=== PATIENT | female | born 2000 | race Hispanic/Latino ===

== ENCOUNTER → 2022-05-21 13:54 | Outpatient (ROUT) | payer OTHER, SELFPAY ==
[2022-05-21 16:47] LABS: COVID-19 CEPHEID PCR (VTM/NP) Negative (Negative)
== END ==
PROVIDERS: PCP Student in an Organized Health Care Education/Training Program; Visit Provider Otolaryngology
DX: J35.01 Chronic tonsillitis (principal); J35.1 Hypertrophy of tonsils; J98.8 Other specified respiratory disorders; J35.8 Other chronic diseases of tonsils and adenoids
CPT/HCPCS: U0003; U0005

== ENCOUNTER 2022-05-23 08:09 | Day surgery (SDC) | payer OTHER, SELFPAY ==
[2022-05-20 14:14] VITALS: BMI 22.3
[2022-05-23] VITALS (7 sets, daily range): BP systolic 118–148; BP diastolic 76–100; PULSE 65–102; RESP 11–23; TEMP 36.2–36.6; O2SAT 96–100; BMI 22.3
--- NOTE | 2022-05-23 08:53 | PM.PREOP ---
Pre-operative Note Interval Note History & Physical reviewed/Exam performed by Physician: Yes Changes to H&P: No
--- NOTE | 2022-05-23 08:54 | P.HP_ITS ---
History of Present Illness History of Present Illness Date Patient Seen: 05/23/22 Time Patient Seen: 08:54 Chief complaint: TONSILLECTOMY & POSS ADENOIDECTOMY Narrative: 21-year-old female last seen in clinic 02/28/2022 for chronic tonsillitis, tonsillar hypertrophy, respiratory obstruction and tonsil stones presents for tonsillectomy and possible adenoidectomy as outpatient. No interval health changes. Patient History Medical History COVID-19 virus infection (~01/2022) Recurrent tonsillitis Tonsil stone Tonsillar hypertrophy Surgical History No pertinent past surgical history Family & Social History Social History: household members other Tobacco & Substance use: Smoking Status Never smoker alcohol intake current alcohol intake frequency a few times a week Substance Use Type does not use Meds Home Medications and Allergies Home Medications Medication Instructions Recorded Confirmed Type No Known Home Medications 05/20/22 05/20/22 History Allergies Allergy/AdvReac Type Severity Reaction Status Date / Time No Known Drug Allergies Allergy Verified 05/23/22 08:30 Review of Systems Review of Systems Narrative: Negative except as listed in the HPI Exam Vital Signs (past 8 hours): - 05/23/22 08:31 Temperature 98 F Pulse Rate 70 Respiratory Rate 16 Blood Pressure 118/76 Pulse Oximetry 100 Oxygen Delivery Method Room Air Oxygen Delivery Method Room Air Narrative Exam Narrative: Well-developed well-nourished female in no acute distress. Heart regular rate and rhythm without murmur, lungs clear to auscultation bilaterally Assessment & Plan Assessment & Plan narrative: Assessment: Chronic tonsillitis, tonsillar hypertrophy, respiratory obstruction, tonsil stones Plan: Following discussion of the material risks benefits complications and alternatives, she elected to proceed with tonsillectomy and possible a denoidectomy as outpatient. Time Spent With Patient Critical Care time: I spent a total of [] minutes of critical care time on this patient's care today; this time is exclusive of procedural time.
--- NOTE | 2022-05-23 08:55 | PM.OP.1 ---
Operative Date/Time/Diagnoses Date of procedure: 05/23/22 Time of procedure: 10:43 Pre-op diagnosis: Chronic tonsillitis, tonsil stone, tonsillar hypertrophy, respiratory obstruction Post-op diagnosis: same Procedure & Clinicians Procedure: Tonsillectomy Same procedure as scheduled: Yes Indications: 21-year-old female with the above diagnoses incompletely managed with medical therapy presents for the above procedure. Following discussion of the material risks benefits complications and alternatives, she elected to proceed. Surgeon: Mook Barnes Click Yes if Unassisted: Yes Anesthesia Type: General and Local Operative Notes Findings: 2-3+ tonsils, absent adenoids, intact palate, single uvula Estimated Blood Loss (mL): 10 Procedure in detail: Following identification and confirmation of consent the patient was brought to the operating room suite and placed in the supine position. General endotracheal anesthesia was administered. A head wrap, shoulder roll, and mouth gag were placed and a red rubber catheter was inserted through the nostril and out the mouth to retract the soft palate. There was no significant adenoid tissue. The left tonsil was retracted medially and needle-tip electrocautery on a setting of 12 was used to dissect the tonsil in a subcapsular plane. Hemostasis with suction electrocautery on 20 was obtained. This process was repeated on the right side with identical findings. The tonsillar fossa were superficially infiltrated bilaterally with a 1 1 mixture of 1% lidocaine and 0.5% Marcaine 1 to [id number] epinephrine. Mouth gag and rubber catheter were removed and the patient was extubated in the operating room and taken to the recovery room in stable condition without known complication. Complications: none Post-operative Condition: stable Disposition: same day surgery Plan for aftercare: Push fluids, alternate Tylenol and Advil every 3 hours for baseline pain control, oxycodone for breakthrough pain. Soft diet 2 full weeks, no heavy lifting or straining 2 weeks.
[2022-05-23] MEDS: LACTATED RINGERS 1,000 ML 42 ML IV (08:57)
--- NOTE | 2022-05-23 10:27 | SUR.OPER ---
Supine on padded OR bed, head on pillow, arms secured on padded arm boards at <90 degrees abduction, legs uncrossed, safety belt at thigh, tape over blanket over lower legs.
[2022-05-23] MEDS: BUPIVACAINE 0.5% W/ EPI (PF) 30 ML VIAL INJ (10:29)
[2022-05-23] MEDS: LIDOCAINE 1% (PF) 5 ML 1 ML INJ (10:30)
[2022-05-23] MEDS: OXYCODONE IR 5 MG TABLET PO (11:13)
[2022-05-23] MEDS: BENZOCAINE/MENTHOL 1 LOZ PKT 1 EACH PO ×2 (11:14→11:34)
== END 2022-05-23 11:43 | disposition home or self-care (01) ==
PROVIDERS: PCP Student in an Organized Health Care Education/Training Program; Referring Provider Otolaryngology; Visit Provider Otolaryngology
PROC: (CPT 42826; principal; 2022-05-23 09:45)
DX: J35.01 Chronic tonsillitis (principal); J35.8 Other chronic diseases of tonsils and adenoids; J98.8 Other specified respiratory disorders
CPT/HCPCS: 42826; J1100; J2250; J2405; J2704; J3010